=== PATIENT | male | born 1945 | race Caucasian/White ===

== ENCOUNTER 2024-11-20 18:27 | Emergency (ER) | payer OTHER ==
[2024-11-20 18:49] VITALS: BP 171/96; PULSE 84; RESP 20; TEMP 98; BMI 20.2
== END 2024-11-20 21:22 | disposition home or self-care (01) ==
LOC: FER 18:27
DX: T18.108A Unspecified foreign body in esophagus causing other injury, initial encounter (principal)
CPT/HCPCS: 71250-TC; 99284-25